=== PATIENT | male | born 1970 | race Caucasian/White ===

== ENCOUNTER 2018-10-23 09:51 | Inpatient (IN) ==
[2018-10-23] MEDS ORDERED: 0.9 % SODIUM CHLORIDE 1,000 ML IV ONE ×3 (10:02→12:44)
[2018-10-23] MEDS ORDERED: INSULIN REGULAR, HUMAN 1 UNIT/0.01 ML UNIT IV ONE (10:03)
[2018-10-23] MEDS ORDERED: ONDANSETRON 4 MG/2 ML VIAL IV ONE (10:15)
[2018-10-23] MEDS ORDERED: PHENobarb/HYOSCY/ATROPINE/SCOP 1 DOSE BOTTLE PO ONE (10:18)
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
[2018-10-23 10:53] LABS: Basophils # (Auto) 0 K/mcL (0.0-0.3); Basophils % (Auto) 0 % (0.0-2.0); Eosinophils # (Auto) 0 K/mcL (0.0-0.7); Eosinophils % (Auto) 0 % (0.0-7.0); Granulocytes % (Auto) 87.6 % (38.0-78.0); Lymphocytes # (Auto) 1.6 K/mcL (1.5-4.8); Mean Cell Volume 81.8 fL (80.0-100.0); Mean Corpuscular HGB Conc 32.6 g/dL (31.0-36.0); Monocytes # (Auto) 0.9 K/mcL (0.1-0.9); Monocytes % (Auto) 4.4 % (1.0-12.0); Platelet Count 423 K/mcL (140-440); RBC 5.37 M/mcL (4.50-5.90); Red Cell Distribution Width 15.7 % (11.5-14.5)
[2018-10-23] MEDS ORDERED: NOREPINEPHRINE BITARTRATE 16 MG in 0.9 % SODIUM CHLORIDE 234 ML IV ONE (10:59)
[2018-10-23 11:27] LABS: ALT/SGPT 26 U/l (0-40); Albumin 4.9 gm/dL (3.2-5.2); Albumin/Globulin Ratio 1.7 (1.0-2.3); Alkaline Phosphatase 130 U/L (39-117); Blood Urea Nitrogen 77 mg/dl (6-20)
--- NOTE | 2018-10-23 11:47 | XRay Report ---
HISTORY: Cough and elevated white blood cell count FINDINGS: The lungs are clear and well expanded. The heart, mediastinum, josé miguel and pleura are normal. There has been little change since 02/27/08. IMPRESSION: Normal exam Interpreted and Authenticated by: Ritchie Smith 10/23/18
[2018-10-23 12:00] LABS: Band Neutrophils % 5 % (0-10); Lymphocytes % 7 % (15-49); Monocytes % (Manual) 2 % (1-12); Platelet Estimate NORMAL (NORMAL); RBC Morphology NORMAL (NORMAL); Segmented Neutrophils % 86 % (38-78)
[2018-10-23] MEDS ORDERED: INSULIN REGULAR, HUMAN 50 UNIT in 0.9 % SODIUM CHLORIDE 99.5 ML IV ONE (12:09)
[2018-10-23] MEDS ORDERED: PIPERACILLIN SODIUM/TAZOBACTAM 3.375 GM in DEXTROSE 5% IN WATER 50 ML IV ONE ×2 (12:14→15:00)
[2018-10-23] MEDS ORDERED: VANCOMYCIN PER PHARMACY IV ONE (12:15)
[2018-10-23] MEDS ORDERED: VANCOMYCIN 1,000 MG in 0.9 % SODIUM CHLORIDE 250 ML IV ONE (12:30)
[2018-10-23 13:10] LABS: Appearance,Urine HAZY; Bacteria,Urine FEW /hpf (0); Bilirubin,Urine NEG (NEG); Color,Urine YELLOW; Glucose,Urine (UA) >=500 mg/dL (NEG); Leukocyte Esterase,Urine NEG /uL (NEG); Mucus,Urine MOD /hpf (0); Protein,Urine 100 mg/dL (NEG); Specific Gravity,Urine 1.017 (1.000-1.035); Urine Blood NEG mg/dL (<0.03); Urine Hyaline Cast 211 /lpf (0-2); Urine RBC 2 /hpf (0-1); Urine Squamous Epithelial Cell 0 /hpf (0-4); Urine Transitional Epi Cells < 1 /hpf (0-2); Urine WBC 3 /hpf (0-4); Urobilinogen,Urine NEG (NEG)
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
[2018-10-23] MEDS ORDERED: ACETAMINOPHEN 325 MG TABLET PO PRN (14:18)
[2018-10-23] MEDS ORDERED: LORazepam 1 MG TABLET PO PRN (14:18)
[2018-10-23] MEDS ORDERED: hydrOXYzine 25 MG TABLET PO PRN (14:18)
[2018-10-23] MEDS ORDERED: PROMETHAZINE 25 MG TABLET PO PRN (14:18)
[2018-10-23] MEDS ORDERED: ONDANSETRON 4 MG/2 ML VIAL IV PRN (14:18)
[2018-10-23] MEDS ORDERED: LORazepam 2 MG/ML VIAL ONE ×2 (14:38→14:43)
[2018-10-23] MEDS ORDERED: LORazepam 2 MG/ML VIAL IV ONE (14:40)
[2018-10-23] MEDS: 0.9 % SODIUM CHLORIDE 250 ML IV SCH ×2 (15:00→21:51)
--- NOTE | 2018-10-23 15:19 | Procedure Note ---
Procedures - Central Line Placement Right IJ Date of Procedure: 10/23/18 Time out performed: Yes Patient placed on monitor/pulse ox: Yes MD prep: mask, sterile gown, sterile gloves, cap Central line prep: 2% Chlorhexidine scrub Local anesthesia used: lidocaine 1% Amount of anesthesia used (mls): 3 Ultrasound used for placement: Yes Central line lumen inserted: quad, 16 cm Post procedure: sutured in place Patient tolerated procedure: well Additional comments: Stat CXR ordered to confirm placement
[2018-10-23] MEDS: 0.9 % SODIUM CHLORIDE 10 ML SYRINGE IV SCH ×2 (15:33→21:04)
[2018-10-23] MEDS: LORazepam 2 MG/ML VIAL IV ONE ×2 (15:34→15:35)
[2018-10-23] MEDS: 0.9 % SODIUM CHLORIDE 1,000 ML IV SCH ×3 (15:46→22:13)
--- NOTE | 2018-10-23 15:55 | XRay Report ---
HISTORY: Central venous catheter placement FINDINGS: A right internal jugular catheter has been inserted with the tip in the superior vena cava. The lungs are clear and well expanded. No pneumothorax or pleural effusion are present and there is no widening of the mediastinum. The heart size is normal. IMPRESSION: Normal chest following insertion of a central venous line Interpreted and Authenticated by: Ritchie Smith 10/23/18
[2018-10-23 16:24] LABS: Estimated Average Glucose(eAG) 258 mg/dL; Hemoglobin A1C 10.6 % HGB (4.0-6.0)
[2018-10-23 16:29] LABS: Beta Hydroxybutyrate 3.33 mmol/L (< 0.27); Blood Urea Nitrogen 61 mg/dl (6-20)
[2018-10-23] MEDS: INSULIN REGULAR, HUMAN 50 UNIT in 0.9 % SODIUM CHLORIDE 99.5 ML IV SCH ×3 (17:41→21:04)
[2018-10-23] MEDS ORDERED: INSULIN REGULAR, HUMAN 50 UNIT in 0.9 % SODIUM CHLORIDE 99.5 ML IV SCH (18:30)
[2018-10-23] MEDS: DEXTROSE 5%-NS 1,000 ML IV SCH ×2 (19:08→23:07)
[2018-10-23] MEDS: HEPARIN 5,000 UNIT/ML VIAL SQ SCH (20:30)
[2018-10-23] MEDS: lamoTRIgine 100 MG TABLET PO SCH (20:32)
[2018-10-23] MEDS ORDERED: FAMOTIDINE/PF 20 MG/2 ML VIAL IV SCH (21:00)
[2018-10-23 21:02] LABS: Blood Urea Nitrogen 43 mg/dl (6-20)
[2018-10-24] MEDS ORDERED: INSULIN REGULAR, HUMAN 1 UNIT/0.01 ML UNIT ONE (01:21)
[2018-10-24] MEDS: DEXTROSE 5%-NS 1,000 ML IV SCH ×2 (03:29→07:17)
[2018-10-24] MEDS: 0.9 % SODIUM CHLORIDE 10 ML SYRINGE IV SCH ×3 (05:31→21:09)
[2018-10-24] MEDS: 0.9 % SODIUM CHLORIDE 250 ML IV SCH (05:32)
[2018-10-24 06:22] LABS: Basophils # (Auto) 0 K/mcL (0.0-0.3); Basophils % (Auto) 0.4 % (0.0-2.0); Eosinophils # (Auto) 0 K/mcL (0.0-0.7); Eosinophils % (Auto) 0.3 % (0.0-7.0); Granulocytes % (Auto) 71.8 % (38.0-78.0); Lymphocytes # (Auto) 1.4 K/mcL (1.5-4.8); Lymphocytes % (Auto) 20.2 % (15.5-49.0); Mean Cell Volume 81.5 fL (80.0-100.0); Mean Corpuscular HGB Conc 33.2 g/dL (31.0-36.0); Monocytes # (Auto) 0.5 K/mcL (0.1-0.9); Monocytes % (Auto) 7.3 % (1.0-12.0); Platelet Count 270 K/mcL (140-440); Red Cell Distribution Width 15.2 % (11.5-14.5)
[2018-10-24 06:40] LABS: ALT/SGPT 14 U/l (0-40); Albumin/Globulin Ratio 1.4 (1.0-2.3); Alkaline Phosphatase 72 U/L (39-117); Bilirubin,Direct < 0.2 mg/dL (0.0-0.3); Blood Urea Nitrogen 22 mg/dl (6-20); Gamma Glutamyl Transpeptidase 22 U/L (8-61); Uric Acid 6.9 mg/dL (2.5-8.0)
[2018-10-24] MEDS ORDERED: POTASSIUM CHLORIDE 40 MEQ in DEXTROSE 5% IN WATER 250 ML IV ONE (07:14)
[2018-10-24] MEDS ORDERED: DEXTROSE 5%-NS 1,000 ML IV SCH ×3 (07:15→09:19)
--- NOTE | 2018-10-24 07:20 | Internal Med Progress Note ---
Medical - PN: Subj Patient information: Note initiated : 10/24/18 at 7:10 am Service Date, if different from initiated Date: [] Patient: Mo Reed 48 y/o M admitted on 10/23/18 for low BP, dizziness, DKA. Chief Complaint: [] Interval history: Mr. Reed is a 48 year old M who presents to the ER with complaints of nausea vomiting, weakness and dehydration. He states that he went to bed feeling fine on Tuesday, did not eat anything unusual or did not do anything unusual was taken his medications as well. Tuesday morning woke up feeling a little ill but nothing particularly bothersome. he says his sugar in the morning was 150, he gradually became more ill throughout morning and by noon he had nausea vomiting. He took off his insulin pump in the morning because he was not feeling well and just started giving himself injections. By the afternoon her sugars 250 and a continue to climb throughout the evening. 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 Denies any headaches, does have myalgias but he says he gets myalgias when he has DKA as well. He did have the flu shot. States his glucose typically runs 150-250. He was dizzy yesterday. No fever or chills. Some abdominal discomfort and vomiting. No diarrhea. Set a poor appetite and poor oral intake past couple days. He has had significantly decreased urination yesterday. Tuesday he urinated well. Does have a cough but it is likely his chronic smoker's cough nothing unusual. He developed pyrosis after having the nausea vomiting on Tuesday and is taken at least 20 tablets of Tums over the past couple days. Does not take any vitamin D or vitamin A occasionally will take him multivitamin. He believes his insulin pump was working. In the ED he was found to be in DKA with severe volume depletion resulting in hypotension and acute kidney injury. Chest x-ray and urine unremarkable for any source of infection lactate was 2.0. Was on his third liter of IV fluid normal saline when I arrived in the ED. 10/24 Feeling much better. No new complaints. No nausea vomiting. Attempting to obtain his insulin pump from home. Good urine output tolerating clear liquid diet. Patient off vasopressors and renal function quickly improved. He states his basal daily requirement of insulin is 22 units. And states he uses an extra 50-100 units each day. Review of Systems: denies headache/fever/chills/nausea/vomiting/chest or abdominal pain/cough/ dyspnea/diarrhea. Otherwise see above. - Constitutional Vitals: Vital Signs Temp Pulse Resp BP Pulse Ox 97.2 F 77 16 103/57 95 10/24/18 04:01 10/24/18 07:01 10/24/18 07:01 10/24/18 07:01 10/24/18 07:01 Period Temp Pulse Resp BP Sys/Mayes Pulse Ox Last 24 Hr 97.2 F-99.4 F 72-107 8-28 64-127/42-79 91-100 Intake and Output 10/23/18 10/24/18 10/24/18 21:59 05:59 13:59 Intake Total 1292 / 1292 3206 / 3206 405 / 405 Output Total 1470 / 1470 1780 / 1780 250 / 250 Balance -178 / -178 1426 / 1426 155 / 155 Weight 67.404 kg Intake & Output: Intake & Output 10/23/18 10/24/18 10/24/18 21:59 05:59 13:59 Intake Total 1292 / 1292 3206 / 3206 405 / 405 Output Total 1470 / 1470 1780 / 1780 250 / 250 Balance -178 / -178 1426 / 1426 155 / 155 Weight 67.404 kg Intake: IV 652 / 652 2126 / 2126 5 / 5 Sodium Chloride 0.9% 1,000 ml @ 375 / 375 250 mls/hr IV .Q4H [facility] Rx#: [id number] Sodium Chloride 0.9% 250 ml @ 137 / 137 20 mls/hr IV .[id number] [facility] Rx#: [id number] Dextrose 5%-Ns IV Solution 1995 / 1995 000 ml @ 250 mls/hr IV .Q4H [facility] Rx#:[id number] HumuLIN R 50 UNIT In Sodium 96 / 96 66 / 66 5 / 5 Chloride 0.9% 99.5 ml @ 0.5 UNIT/HR 1 mls/hr IV DUR [facility] Rx# :[id number] Levophed 16 mg In Sodium 44 / 44 14 / 14 Chloride 0.9% 234 ml @ 10 MCG/ MIN 9.37 mls/hr IV Q24H [facility] Rx# :[id number] Oral 640 / 640 1080 / 1080 400 / 400 Output: Urine Catheter Amount 1470 / 1470 1780 / 1780 250 / 250 Other: Urine Appearance Clear [place]re[place] (North) Clear Clear Urine Color Pale Uretheral (North) Pale Pale Urine Odor Normal Exam: General: Alert, Awake, No acute Distress Eyes/N/T: EOMI, Head/Neck: neck supple, CV: 2/6 SM tachy but regular, Pulm: Clear b/l, no wheezing/rhonchi/rales Abd: soft, nontender, +BS x4 Ext: no clubbing/cyanosis/edema Neuro: Alert, no focal deficits, moves all extremities, Skin: warm/dry, Medical - PN: Obj Da - Labs CBC & Chem 7: 10/24/18 04:01 10/24/18 04:01 Labs: Abnormal Lab Results 10/24/18 10/24/18 10/23/18 04:01 04:01 19:53 WBC RBC 3.80 L Hgb 10.3 L Hct 31.0 L RDW 15.2 H Gran % Lymph % (Auto) Gran # Lymph # (Auto) 1.4 L Seg Neutrophils % Lymphocytes % POC Sodium Sodium Potassium 2.8 L* 3.2 L POC Chloride Chloride Carbon Dioxide POC Total CO2 Anion Gap 7.0 L POC BUN BUN 22 H 43 H Creatinine 1.9 H POC Creatinine Glucose 181 H 160 H POC Glucose Hemoglobin A1c Calcium 8.3 L Phosphorus 1.9 L Alkaline Phosphatase Total Protein 5.1 L Albumin 3.0 L Globulin 2.1 L Beta-Hydroxybutyrate Urine Protein Urine Glucose (UA) Urine Ketones Urine RBC Urine Bacteria Hyaline Casts 10/23/18 10/23/18 10/23/18 15:40 12:32 10:14 WBC RBC Hgb Hct RDW Gran % Lymph % (Auto) Gran # Lymph # (Auto) Seg Neutrophils % Lymphocytes % POC Sodium Sodium Potassium POC Chloride Chloride 90 L Carbon Dioxide POC Total CO2 Anion Gap 18.0 H POC BUN BUN 61 H Creatinine 3.1 H POC Creatinine Glucose 288 H POC Glucose Hemoglobin A1c 10.6 H Calcium Phosphorus Alkaline Phosphatase Total Protein Albumin Globulin Beta-Hydroxybutyrate 3.33 H 17.20 H Urine Protein 100 A Urine Glucose (UA) >=500 A Urine Ketones 20 A Urine RBC 2 H Urine Bacteria Few A Hyaline Casts 211 H 10/23/18 10/23/18 10/23/18 10:14 10:14 10:13 WBC 20.7 H RBC Hgb Hct RDW 15.7 H Gran % 87.6 H Lymph % (Auto) 8.0 L Gran # 18.1 H Lymph # (Auto) Seg Neutrophils % 86 H Lymphocytes % 7 L POC Sodium 122 L Sodium 126 L Potassium POC Chloride 77 L Chloride 65 L Carbon Dioxide 17 L POC Total CO2 19 L Anion Gap 44.0 H POC BUN 59 H BUN 77 H Creatinine 5.5 H* POC Creatinine 5.7 H* Glucose 702 H* POC Glucose 667 H* Hemoglobin A1c Calcium 12.4 H Phosphorus Alkaline Phosphatase 130 H Total Protein Albumin Globulin Beta-Hydroxybutyrate Urine Protein Urine Glucose (UA) Urine Ketones Urine RBC Urine Bacteria Hyaline Casts Meds: Medications Acetaminophen (Tylenol) 650 mg PO Q6HP PRN PRN Reason: PAIN/FEVER > 101 Bupropion HCl (Wellbutrin Xl) 300 mg PO DAILY [facility] Diagnostic Test (Pha) (Accu-Chek) 1 each FS Q1 [facility] Last Admin: 10/24/18 06:53 Dose: 1 each Famotidine (Pepcid) 20 mg IV HS [facility] Last Admin: 10/23/18 20:29 Dose: 20 mg Heparin Sodium (Porcine) (Heparin) 5,000 unit SQ Q12 [facility] Last Admin: 10/23/18 20:30 Dose: 5,000 unit Hydroxyzine HCl (Atarax) 25 mg PO HSP PRN PRN Reason: Insomnia Norepinephrine Bitartrate 16 (mg/ Sodium Chloride) 250 mls @ 9.37 mls/hr IV Q24H [facility]; Protocol Stop: 10/24/18 13:39 Last Titration: 10/24/18 05:31 Dose: Infused Insulin Human Regular 50 unit/ (Sodium Chloride) 100 mls @ 0 mls/hr IV Q12H [facility] ; Protocol Last Titration: 10/24/18 02:00 Dose: Infused Sodium Chloride (Sodium Chloride 0.9%) 250 mls @ 20 mls/hr IV .[id number] [facility] Last Admin: 10/24/18 05:32 Dose: Not Given Insulin Human Regular 50 unit/ (Sodium Chloride) 100 mls @ 1 mls/hr IV DUR [facility] ; Protocol Last Titration: 10/24/18 06:58 Dose: 3 unit/hr, 6 mls/hr Dextrose/Sodium Chloride (Dextrose 5%-Ns Iv Solution) 1,000 mls @ 250 mls/hr IV .Q4H [facility] Last Admin: 10/24/18 03:29 Dose: 250 mls/hr Lamotrigine (Lamictal) 150 mg PO BID [facility] Last Admin: 10/23/18 20:32 Dose: 150 mg Lorazepam (Ativan) 1 mg PO HSP PRN PRN Reason: Insomnia Last Admin: 10/23/18 20:29 Dose: 1 mg Ondansetron HCl (Zofran) 4 mg IV Q4HP PRN PRN Reason: Nausea And Vomiting Promethazine HCl (Phenergan) 12.5 mg PO Q6HP PRN PRN Reason: Nausea And Vomiting Sodium Chloride (Saline Flush) 10 ml IV Q8 [facility] Last Admin: 10/24/18 05:31 Dose: 10 ml Medical - PN: A/P - Time Spent With Patient Total time spent is greater than 50% in coordination of care (as documented) at patient's floor/unit and/or counseling patient: - Narrative A/P Narrative: A: *DKA, severe (DMI): A1c 11 -no source of infection at this point -uses insulin pump and stopped when started to feel ill *Hypotension: secondary to above, required pressors in ED -Levophed weaned off overnight *Pseudohyponatremia: resolved *ASHLEY: 2/2 above -Resolved *Hypercalcemia: Secondary to overdose on Tums -Resolved *Depression: *h/o Seizure d/o: *tobacco abuse: *HTN/HLD: *Hypokalemia: P: -decrease IVF's, -start insulin pump, SSI -electrolyte replacement prn - -Smoking cessation counseling -ppx: heparin Medical - PN: Qual - Stroke Symptom Onset Unknown: No - VTE Deep Vein Thrombosis/Pulmonary Embolism Present on Admission: No
[2018-10-24] MEDS ORDERED: INSULIN LISPRO 1 UNIT/0.01 ML UNIT SQ SCH ×2 (07:30→17:00)
[2018-10-24] MEDS ORDERED: POTASSIUM CHLORIDE 20 MEQ TABLET PO SCH ×2 (08:00→17:30)
[2018-10-24] MEDS: HEPARIN 5,000 UNIT/ML VIAL SQ SCH ×2 (08:03→20:36)
[2018-10-24] MEDS ORDERED: INSULIN REGULAR, HUMAN 50 UNIT in 0.9 % SODIUM CHLORIDE 99.5 ML IV SCH ×3 (09:00→21:00)
[2018-10-24] MEDS ORDERED: NEUTRA PHOS 1 PACKET PO SCH ×2 (09:00→21:00)
[2018-10-24] MEDS ORDERED: buPROPion 150 MG TAB.XL.24H PO SCH (09:00)
[2018-10-24] MEDS: lamoTRIgine 100 MG TABLET PO SCH ×2 (09:09→20:38)
[2018-10-24] MEDS ORDERED: ACETAMINOPHEN 325 MG TABLET PO PRN (09:19)
[2018-10-24] MEDS ORDERED: hydrOXYzine 25 MG TABLET PO PRN (09:19)
[2018-10-24] MEDS ORDERED: LORazepam 1 MG TABLET PO PRN (09:19)
[2018-10-24] MEDS ORDERED: PROMETHAZINE 25 MG TABLET PO PRN (09:19)
[2018-10-24] MEDS ORDERED: ONDANSETRON 4 MG/2 ML VIAL IV PRN (09:19)
[2018-10-24] MEDS ORDERED: 0.9 % SODIUM CHLORIDE 250 ML IV SCH (09:19)
[2018-10-24] MEDS: INSULIN LISPRO 1 UNIT/0.01 ML UNIT SQ SCH ×3 (11:48→21:00)
--- NOTE | 2018-10-24 14:04 | Discharge Summary ---
Medical - DS: Prov Patient information: Note initiated : 10/24/18 at 2:02 pm Service Date, if different from initiated Date: [] Patient: Mo Reed 48 y/o M admitted on 10/23/18 for low BP, dizziness, DKA. Chief Complaint: [] Date of admission: 10/23/18 13:40 Discharge date: 10/25/18 Primary care physician: Benjie Colvin Consults: 10/23/18 Consult to Physician [CONS] Stat Comment: Consulting Provider: Doyle Conti Reason For Exam: Physician to Consult Medical - DS: Meds - Discharge Medications Active and Home Medications: Home Medications Atorvastatin [Lipitor] 10 mg PO DAILY 10/23/18 [History Confirmed 10/23/18 Last Taken 10/20/18] LORazepam [Ativan] 1 mg PO PRN PRN 10/23/18 [History Confirmed 10/23/18 Last Taken 10/20/18] Lisinopril [Zestril] 10 mg PO DAILY 10/23/18 [History Confirmed 10/23/18 Last Taken 10/20/18] buPROPion HCL [Bupropion HCl ER] 300 mg PO DAILY 10/23/18 [History Confirmed Last Taken 10/20/18] hydrOXYzine PAMOATE [Hydroxyzine Pamoate] 25 mg PO PRN PRN 10/23/18 [History Confirmed 10/23/18 Last Taken 10/20/18] lamoTRIgine [Lamictal] 150 mg PO BID 10/23/18 [History Confirmed 10/23/18 Last Taken 10/20/18] Medical - DS: Hosp Hospital course: Mr. Reed is a 48 year old M Mr. Reed is a 48 year old M who presents to the ER with complaints of nausea vomiting, weakness and dehydration. He states that he went to bed feeling fine on Tuesday, did not eat anything unusual or did not do anything unusual was taken his medications as well. Tuesday morning woke up feeling a little ill but nothing particularly bothersome. he says his sugar in the morning was 150, he gradually became more ill throughout morning and by noon he had nausea vomiting. He took off his insulin pump in the morning because he was not feeling well and just started giving himself injections. By the afternoon her sugars 250 and a continue to climb throughout the evening. 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 Denies any headaches, does have myalgias but he says he gets myalgias when he has DKA as well. He did have the flu shot. States his glucose typically runs 150-250. He was dizzy yesterday. No fever or chills. Some abdominal discomfort and vomiting. No diarrhea. Set a poor appetite and poor oral intake past couple days. He has had significantly decreased urination yesterday. Tuesday he urinated well. Does have a cough but it is likely his chronic smoker's cough nothing unusual. He developed pyrosis after having the nausea vomiting on Tuesday and is taken at least 20 tablets of Tums over the past couple days. Does not take any vitamin D or vitamin A occasionally will take him multivitamin. He believes his insulin pump was working. In the ED he was found to be in DKA with severe volume depletion resulting in hypotension and acute kidney injury. Chest x-ray and urine unremarkable for any source of infection lactate was 2.0. Was on his third liter of IV fluid normal saline when I arrived in the ED. 10/24 Feeling much better. No new complaints. No nausea vomiting. Attempting to obtain his insulin pump from home. Good urine output tolerating clear liquid diet. Patient off vasopressors and renal function quickly improved. He states his basal daily requirement of insulin is 22 units. And states he uses an extra 50-100 units each day. 1/ Sugars are much improved, he is feeling better. Stable for discharge. Discharge diagnosis: DKA severe hypertension ASHLEY hypercalcemia Secondary discharge diagnosis: Depression seizure disorder tobacco abuse hypertension - Time Spent with Patient Total time spent providing and/or coordinating discharge services: Greater than 30 minutes Medical - DS: Exam - Constitutional Vitals: Vital Signs Temp Pulse Resp BP BP Pulse Ox 10/24/18 12:00 99.2 F H 18 135/62 96 10/24/18 10:01 19 103/47 10/24/18 09:23 98.1 F 10/24/18 09:01 16 118/59 10/24/18 08:01 15 104/59 10/24/18 07:01 77 16 103/57 95 10/24/18 06:02 82 17 117/67 94 01/01/19 05:01 75 21 110/56 100 10/24/18 04:05 72 15 100 10/24/18 04:01 97.2 F 78 20 98/51 100 10/24/18 03:31 73 15 100/52 100 10/24/18 03:01 75 25 H 103/54 100 10/24/18 02:31 79 17 110/57 100 10/24/18 02:01 78 20 99/50 100 10/24/18 01:31 83 20 102/52 100 10/24/18 01:01 78 15 108/58 100 10/24/18 00:01 97.8 F 25 H 113/79 100 10/23/18 23:01 80 26 H 109/55 100 10/23/18 22:01 85 17 113/54 100 10/23/18 21:01 18 120/49 10/23/18 20:08 100 10/23/18 20:01 86 23 H 118/56 100 10/23/18 19:01 87 18 106/55 95 10/23/18 18:01 21 119/51 10/23/18 16:07 94 H 18 97 10/23/18 16:01 24 H 116/54 10/23/18 15:51 96 H 19 126/53 98 10/23/18 15:41 102 H 13 124/65 100 10/23/18 15:31 21 96/63 10/23/18 15:22 96 H 19 88/75 95 10/23/18 15:11 94 H 20 109/58 99 10/23/18 15:01 15 117/53 10/23/18 14:49 27 H 101/49 10/23/18 14:32 15 120/54 10/23/18 14:05 91 H 18 127/55 100 Intake and Output 10/24/18 10/24/18 10/24/18 05:59 13:59 21:59 Intake Total 3206 / 3206 1853 / 1853 Output Total 1780 / 1780 870 / 870 Balance 1426 / 1426 983 / 983 Intake: IV 2125 13 / 13 Dextrose 5%-Ns IV Solution 1995 000 ml @ 250 mls/hr IV .Q4H [facility] Rx#:[id number] HumuLIN R 50 UNIT In Sodium 66 / 66 13 / 13 Chloride 0.9% 99.5 ml @ 0.5 UNIT/HR 1 mls/hr IV Q12H [facility] Rx #:[id number] Levophed 16 mg In Sodium 14 / 14 Chloride 0.9% 234 ml @ 10 MCG/ MIN 9.37 mls/hr IV Q24H [facility] Rx# :[id number] Oral 1080 / 1080 1840 / 1840 Output: Urine Catheter Amount 1780 / 1780 870 / 870 Other: Meal Lunch Percent of Meal Consumed 100% Urine Appearance Uretheral (North) Clear Clear Urine Color Uretheral (North) Pale Straw Medical - DS: Data Labs on day of discharge: Labs from last 24 hours 10/24/18 10/24/18 10/24/18 07:32 04:01 04:01 WBC 6.9 RBC 3.80 L Hgb 10.3 L Hct 31.0 L MCV 81.5 MCH 27.1 MCHC 33.2 RDW 15.2 H Plt Count 270 MPV 8.6 Gran % 71.8 Lymph % (Auto) 20.2 [place] % (Auto) 7.3 Eos % (Auto) 0.3 Baso % (Auto) 0.4 Gran # 5.0 Lymph # (Auto) 1.4 L [place] # (Auto) 0.5 Eos # (Auto) 0 Baso # (Auto) 0 Sodium 142 Potassium 2.8 L* Chloride 105 Carbon Dioxide 30 Anion Gap 7.0 L BUN 22 H Creatinine 0.9 GFR Calculation 102 Glucose 181 H Hemoglobin A1c Estim Average Glucose Uric Acid 6.9 Calcium 8.3 L Phosphorus 1.9 L Magnesium 1.9 Total Bilirubin 0.5 Direct Bilirubin < 0.2 GGT 22 AST 8 ALT 14 Alkaline Phosphatase 72 Lactate Dehydrogenase 98 Total Protein 5.1 L Albumin 3.0 L Globulin 2.1 L Albumin/Globulin Ratio 1.4 Triglycerides 85 Beta-Hydroxybutyrate Procalcitonin < 0.05 Urine Color Urine Appearance Urine pH Ur Specific [place] Urine Protein Urine Glucose (UA) Urine Ketones Urine Occult Blood Urine Nitrate Urine Bilirubin Urine Urobilinogen Ur Leukocyte Esterase Ur Culture Indicated? 10/23/18 10/23/18 10/23/18 19:53 15:40 12:32 WBC RBC Hgb Hct MCV MCH MCHC RDW Plt Count MPV Gran % Lymph % (Auto) [place] % (Auto) Eos % (Auto) Baso % (Auto) Gran # Lymph # (Auto) [place] # (Auto) Eos # (Auto) Baso # (Auto) Sodium 138 135 Potassium 3.2 L 3.4 Chloride 97 90 L Carbon Dioxide 30 27 Anion Gap 11.0 18.0 H BUN 43 H 61 H Creatinine 1.9 H 3.1 H GFR Calculation 41 23 Glucose 160 H 288 H Hemoglobin A1c 10.6 H Estim Average Glucose 258 Uric Acid Calcium 9.6 10.3 Phosphorus 3.0 3.6 Magnesium 2.3 2.5 Total Bilirubin Direct Bilirubin GGT AST ALT Alkaline Phosphatase Lactate Dehydrogenase Total Protein Albumin Globulin Albumin/Globulin Ratio Triglycerides Beta-Hydroxybutyrate 3.33 H Procalcitonin Urine Color TNP Urine Appearance TNP Urine pH TNP Ur Specific [place] TNP Urine Protein TNP Urine Glucose (UA) TNP Urine Ketones TNP Urine Occult Blood TNP Urine Nitrate TNP Urine Bilirubin TNP Urine Urobilinogen TNP Ur Leukocyte Esterase TNP Ur Culture Indicated? TNP Preliminary micro results at discharge 10/23/18 12:33 Blood Culture - Preliminary Blood 10/23/18 11:51 Blood Culture - Preliminary Blood 10/23/18 12:32 Urine Culture - Preliminary Urine - [facility] - DS: A/P - Patient/Caregiver Discharge Instructions Activity: increase activity as tolerated Diet: Consistent Carbohydrate - Follow up Plan Follow up with: Benjie Colvin MD [Primary Care Provider] - Disposition: Home, Self-Care Prognosis: Fair Rehab Potential: Fair Medical - DS: Qual - VTE Deep Vein Thrombosis/Pulmonary Embolism Present on Admission: No
[2018-10-24] MEDS: INSULIN GLARGINE, HUMAN 1 UNIT/0.01 ML SQ SCH ×2 (14:18→14:19)
[2018-10-24] MEDS ORDERED: FAMOTIDINE/PF 20 MG/2 ML VIAL IV SCH (21:00)
[2018-10-25] MEDS: 0.9 % SODIUM CHLORIDE 10 ML SYRINGE IV SCH (05:10)
[2018-10-25 05:42] LABS: ALT/SGPT 15 U/l (0-40); Albumin 2.9 gm/dL (3.2-5.2); Albumin/Globulin Ratio 1.3 (1.0-2.3); Alkaline Phosphatase 75 U/L (39-117); Bilirubin,Direct < 0.2 mg/dL (0.0-0.3); Blood Urea Nitrogen 17 mg/dl (6-20); Gamma Glutamyl Transpeptidase 22 U/L (8-61); Uric Acid 3.4 mg/dL (2.5-8.0)
[2018-10-25] MEDS ORDERED: NEUTRA PHOS 1 PACKET PO ONE (06:56)
[2018-10-25] MEDS ORDERED: buPROPion 150 MG TAB.XL.24H PO SCH (09:00)
[2018-10-25] MEDS: lamoTRIgine 100 MG TABLET PO SCH (09:20)
[2018-10-25] MEDS: INSULIN GLARGINE, HUMAN 1 UNIT/0.01 ML SQ SCH (09:22)
[2018-10-25] MEDS: INSULIN LISPRO 1 UNIT/0.01 ML UNIT SQ SCH (09:22)
[2018-10-25] MEDS: HEPARIN 5,000 UNIT/ML VIAL SQ SCH (09:47)
== END 2018-10-25 11:34 | disposition home or self-care (01) | DRG 637 ==
LOC: ED 09:51 → ICU 13:40
PROVIDERS: ADMIT Internal Medicine; ATTEND Internal Medicine